=== PATIENT | male | born 1960 | race Caucasian/White ===

== ENCOUNTER 2020-02-24 08:35 | Inpatient (IN) | payer BC, OTHER ==
[~2020-02-24] VITALS: Ht 190.5 cm; Wt 151.0 kg
[2020-02-24 09:00] LABS: Basophils # (auto) 0 10 ^3/uL (0-0.2); Basophils % (auto) 0.1 % (0.0-2.0); Eosinophils # (auto) 0 10 ^3/uL (0-0.8); Hematocrit 43.9 % (41.0-53.0); Hemoglobin 14.9 g/dL (13.5-17.5); Lymphocytes # (auto) 0.7 10 ^3/uL (0.4-5.4); Lymphocytes % (auto) 8.8 % (10.0-50.0); Mean Corpuscular Hemoglobin 30.1 pg (28.0-32.0); Mean Corpuscular Volume 88.5 fL (80.0-100.0); Monocytes # (auto) 0.5 10 ^3/uL (0-1.3); Monocytes % (auto) 5.9 % (0.0-12.0); Neutrophils # (auto) 6.9 10 ^3/uL (1.6-8.6); Neutrophils % (auto) 85.2 % (37.0-80.0); Nucleated Red Blood Cells % 0.2 %; Platelet Count (auto) 165 10^3/uL (140-450); Red Blood Cells 4.97 10^6/uL (4.5-5.90); Red Cell Distribution Width 13.2 % (11.8-14.3); White Blood Cell 8.1 10^3/uL (4.4-10.8)
[2020-02-24 09:22] LABS: Alanine Aminotransferase 49 U/L (16-61); Albumin 2.9 g/dL (3.4-5.0); Anion Gap 12 (5-15); Aspartate Aminotransferase 74 U/L (15-37); BUN/Creatinine Ratio 14.5; Blood Urea Nitrogen 16 mg/dL (7-18); Calcium 8.2 mg/dL (8.5-10.1); Carbon Dioxide 23 mmol/L (21-32); Chloride 101 mmol/L (98-107); GFR African American 88 mL/min; GFR Non-African American 73 mL/min; Glucose 175 mg/dL (74-106); Magnesium 2.2 mg/dL (1.6-2.6); Potassium 3.6 mmol/L (3.5-5.1); Sodium 136 mmol/L (136-145)
[2020-02-24 09:27] LABS: Alkaline Phosphatase 62 U/L (45-117); Bilirubin, Total 1.2 mg/dL (0.2-1.0)
[2020-02-24] MEDS ORDERED: levoFLOXacin 750MG 150 ML IV ONE (11:15)
[2020-02-24] MEDS ORDERED: ONDANSETRON HCL 4 MG/2 ML VIAL IV PRN (12:00)
[2020-02-24] MEDS ORDERED: REMDESIVIR PER PHARMACY 0 ML IV SCH (12:00)
[2020-02-24] MEDS ORDERED: MORPHINE SULF INJ 2 MG/ML SYRINGE 1ML IV PRN (12:00)
[2020-02-24] MEDS ORDERED: guaiFENesin-DM 100/10mg/5ml SYR PO PRN (12:00)
[2020-02-24] MEDS ORDERED: NITROGLYCERIN 0.4 MG SL TAB SL PRN (12:00)
[2020-02-24] MEDS ORDERED: AZITHROMYCIN 500MG/ 250ML 250 ML IV ONE (12:15)
[2020-02-24] MEDS ORDERED: ENOXAPARIN SOD 40 MG/0.4 ML SYRINGE SC ONE (12:15)
[2020-02-24] MEDS ORDERED: ASCORBIC ACID 1,000 MG TAB PO ONE (12:15)
[2020-02-24] MEDS ORDERED: FAMOTIDINE 20 MG TAB PO ONE (12:15)
[2020-02-24] MEDS ORDERED: CHOLECALCIFEROL (VITD3) 2,000 UNIT CAP PO ONE (12:15)
[2020-02-24] MEDS ORDERED: ZINC SULFATE 220mg CAP or TAB PO ONE (12:15)
[2020-02-24] MEDS ORDERED: DexAMETHasone SOD PHOS 10MG/1ML VIAL INJ IV ONE (12:15)
[2020-02-24] MEDS ORDERED: LISI-646 PO (13:06)
[2020-02-24] MEDS ORDERED: AMLO10TA13 PO (13:06)
[2020-02-24 15:09] LABS: Urine Bacteria FEW /hpf (None Seen); Urine Blood Negative /uL (Negative); Urine Mucus FEW (None Seen); Urine WBC 3 /hpf (0 - 3)
[2020-02-24] MEDS ORDERED: REMDESIVIR 200 MG in NS 210ml LOADING DOSE ADULT IV ONE (20:00)
[2020-02-24] MEDS: BUDESONIDE (INHALATION) 180 MCG IH IN SCH (22:00)
[2020-02-24] MEDS: ENOXAPARIN SOD 40 MG/0.4 ML SYRINGE SC SCH (23:28)
[2020-02-25 05:32] LABS: Basophils # (auto) 0 10 ^3/uL (0-0.2); Basophils % (auto) 0.1 % (0.0-2.0); Eosinophils # (auto) 0 10 ^3/uL (0-0.8); Hematocrit 43.6 % (41.0-53.0); Lymphocytes # (auto) 0.8 10 ^3/uL (0.4-5.4); Lymphocytes % (auto) 10.9 % (10.0-50.0); Mean Corpuscular Hemoglobin 30.6 pg (28.0-32.0); Mean Corpuscular Hgb Conc. 34.3 g/dL (32.0-36.0); Mean Corpuscular Volume 89.4 fL (80.0-100.0); Monocytes # (auto) 0.4 10 ^3/uL (0-1.3); Monocytes % (auto) 6.1 % (0.0-12.0); Neutrophils # (auto) 5.7 10 ^3/uL (1.6-8.6); Neutrophils % (auto) 82.9 % (37.0-80.0); Nucleated Red Blood Cells % 0.1 %; Platelet Count (auto) 181 10^3/uL (140-450); Red Blood Cells 4.88 10^6/uL (4.5-5.90); Red Cell Distribution Width 13.3 % (11.8-14.3); White Blood Cell 6.9 10^3/uL (4.4-10.8)
[2020-02-25 05:52] LABS: Potassium 4.1 mmol/L (3.5-5.1)
[2020-02-25 06:01] LABS: Albumin 2.6 g/dL (3.4-5.0); BUN/Creatinine Ratio 20.6; Bilirubin, Total 0.9 mg/dL (0.2-1.0); Calcium 8.5 mg/dL (8.5-10.1)
[2020-02-25] MEDS: AZITHROMYCIN 500MG/ 250ML 250 ML IV SCH (08:23)
[2020-02-25] MEDS: ASCORBIC ACID 1,000 MG TAB PO SCH (08:23)
[2020-02-25] MEDS: ZINC SULFATE 220mg CAP or TAB PO SCH (08:23)
[2020-02-25] MEDS: ENOXAPARIN SOD 40 MG/0.4 ML SYRINGE SC SCH ×2 (08:23→22:43)
[2020-02-25] MEDS: FAMOTIDINE 20 MG TAB PO SCH (08:23)
[2020-02-25] MEDS: CHOLECALCIFEROL (VITD3) 2,000 UNIT CAP PO SCH (08:23)
[2020-02-25] MEDS: cefTRIAXone 1GM/50ML D5W 50 ML IV SCH (09:09)
[2020-02-25] MEDS: BUDESONIDE (INHALATION) 180 MCG IH IN SCH ×2 (10:00→22:00)
[2020-02-25] MEDS ORDERED: DexAMETHasone SOD PHOS 10MG/1ML VIAL INJ IV SCH (10:00)
[2020-02-25 12:20] VITALS: BP 135/78
[2020-02-25 12:35] VITALS: BP 129/58
[2020-02-25 13:44] VITALS: BP 138/96
[2020-02-25] MEDS: REMDESIVIR 100 MG in SODIUM CHL 0.9% 250 ML IV SCH (15:15)
[2020-02-25] MEDS ORDERED: FUROSEMIDE 20 MG/2 ML VIAL IV ONE (16:00)
[2020-02-25] MEDS ORDERED: DEXTROSE (50%) 50ML SYRG IV PRN (16:00)
[2020-02-25] MEDS ORDERED: diphenhdrAMINE HCL 50 MG/1 ML VL IV SCH (17:30)
[2020-02-25] MEDS ORDERED: methylPREDNISolone SOD SUCC 40 MG/ML VL IV ONE ×2 (17:30→19:30)
[2020-02-25] MEDS ORDERED: ACETAMINOPHEN 650 mg PER 20.3 mL UD PO SCH (17:30)
[2020-02-25] MEDS ORDERED: TOCILIZUMAB 400 MG in SODIUM CHL 0.9% 80 ML IV SCH (18:00)
[2020-02-25] MEDS: ACCU-CHEK COMFORT CURVE STRIP VI SCH ×2 (18:29→23:51)
[2020-02-25] MEDS: InsuLIN REG 1unit/0.01ml Soln (100units/ml) SC SCH (18:34)
[2020-02-25] MEDS: diphenhdrAMINE HCL 50 MG/1 ML VL IV SCH (20:03)
[2020-02-25] MEDS: ACETAMINOPHEN 650 mg PER 20.3 mL UD PO SCH (20:04)
[2020-02-25] MEDS: TOCILIZUMAB 400 MG in SODIUM CHL 0.9% 80 ML IV SCH (21:03)
[2020-02-26] VITALS: BP 146/95
[2020-02-26] MEDS: InsuLIN REG 1unit/0.01ml Soln (100units/ml) SC SCH ×5 (00:02→23:42)
[2020-02-26 02:25] VITALS: BP 146/95
[2020-02-26] MEDS: ACCU-CHEK COMFORT CURVE STRIP VI SCH ×4 (06:00→23:37)
[2020-02-26 07:00] LABS: Albumin 2.5 g/dL (3.4-5.0); BUN/Creatinine Ratio 25.3; Bilirubin, Total 0.7 mg/dL (0.2-1.0); Calcium 8.2 mg/dL (8.5-10.1); Total Protein 6.6 g/dL (6.4-8.2)
[2020-02-26] MEDS: diphenhdrAMINE HCL 50 MG/1 ML VL IV SCH (07:26)
[2020-02-26] MEDS: DexAMETHasone SOD PHOS 10MG/1ML VIAL INJ IV SCH (07:26)
[2020-02-26] MEDS: ACETAMINOPHEN 650 mg PER 20.3 mL UD PO SCH (07:27)
[2020-02-26 08:00] VITALS: BP 153/85
[2020-02-26] MEDS: cefTRIAXone 1GM/50ML D5W 50 ML IV SCH (09:28)
[2020-02-26] MEDS: CHOLECALCIFEROL (VITD3) 2,000 UNIT CAP PO SCH (09:30)
[2020-02-26] MEDS: FAMOTIDINE 20 MG TAB PO SCH (09:30)
[2020-02-26] MEDS: ASCORBIC ACID 1,000 MG TAB PO SCH (09:30)
[2020-02-26] MEDS: ZINC SULFATE 220mg CAP or TAB PO SCH (09:30)
[2020-02-26] MEDS: ENOXAPARIN SOD 40 MG/0.4 ML SYRINGE SC SCH ×2 (09:30→22:12)
[2020-02-26] MEDS: FUROSEMIDE 20 MG/2 ML VIAL IV SCH (10:00)
[2020-02-26] MEDS: BUDESONIDE (INHALATION) 180 MCG IH IN SCH ×2 (10:00→22:12)
[2020-02-26] MEDS: TOCILIZUMAB 400 MG in SODIUM CHL 0.9% 80 ML IV SCH (10:30)
[2020-02-26] MEDS: AZITHROMYCIN 500MG/ 250ML 250 ML IV SCH (12:30)
[2020-02-26 16:00] VITALS: BP 125/76
[2020-02-26] MEDS: REMDESIVIR 100 MG in SODIUM CHL 0.9% 250 ML IV SCH (17:00)
[2020-02-26 22:00] VITALS: BP 124/63
[2020-02-27] MEDS: ACCU-CHEK COMFORT CURVE STRIP VI SCH ×4 (05:51→23:37)
[2020-02-27] MEDS: InsuLIN REG 1unit/0.01ml Soln (100units/ml) SC SCH ×4 (05:52→23:55)
[2020-02-27 08:00] VITALS: BP 144/83
[2020-02-27 08:47] LABS: Albumin 2.4 g/dL (3.4-5.0); Calcium 8.4 mg/dL (8.5-10.1)
[2020-02-27] MEDS: cefTRIAXone 1GM/50ML D5W 50 ML IV SCH (08:52)
[2020-02-27] MEDS: BUDESONIDE (INHALATION) 180 MCG IH IN SCH ×2 (08:53→20:55)
[2020-02-27] MEDS: FUROSEMIDE 20 MG/2 ML VIAL IV SCH (08:53)
[2020-02-27] MEDS: ZINC SULFATE 220mg CAP or TAB PO SCH (08:53)
[2020-02-27] MEDS: FAMOTIDINE 20 MG TAB PO SCH (08:53)
[2020-02-27] MEDS: DexAMETHasone SOD PHOS 10MG/1ML VIAL INJ IV SCH (08:53)
[2020-02-27] MEDS: ENOXAPARIN SOD 40 MG/0.4 ML SYRINGE SC SCH ×2 (08:54→21:25)
[2020-02-27] MEDS: ASCORBIC ACID 1,000 MG TAB PO SCH (08:54)
[2020-02-27] MEDS: CHOLECALCIFEROL (VITD3) 2,000 UNIT CAP PO SCH (08:54)
[2020-02-27 09:12] LABS: BUN/Creatinine Ratio 24.5; Bilirubin, Total 0.6 mg/dL (0.2-1.0); Total Protein 6.1 g/dL (6.4-8.2)
[2020-02-27] MEDS: AZITHROMYCIN 500MG/ 250ML 250 ML IV SCH (10:25)
[2020-02-27] MEDS: REMDESIVIR 100 MG in SODIUM CHL 0.9% 250 ML IV SCH (15:06)
[2020-02-27 16:03] VITALS: BP 142/80
[2020-02-28 00:22] VITALS: BP 138/87
[2020-02-28] MEDS: ACCU-CHEK COMFORT CURVE STRIP VI SCH ×4 (06:08→23:52)
[2020-02-28] MEDS: InsuLIN REG 1unit/0.01ml Soln (100units/ml) SC SCH ×4 (06:09→23:53)
[2020-02-28 07:54] LABS: Potassium 4.2 mmol/L (3.5-5.1)
[2020-02-28 08:00] VITALS: BP 135/91
[2020-02-28 08:04] LABS: Albumin 2.6 g/dL (3.4-5.0); BUN/Creatinine Ratio 26.3; Calcium 8.1 mg/dL (8.5-10.1)
[2020-02-28 08:06] LABS: Bilirubin, Total 0.8 mg/dL (0.2-1.0); Total Protein 6.2 g/dL (6.4-8.2)
[2020-02-28] MEDS: ALBUTEROL SULF HFA 90MCG INH 200DOSE IN PRN ×2 (09:35→19:23)
[2020-02-28] MEDS: BUDESONIDE (INHALATION) 180 MCG IH IN SCH ×2 (09:35→19:23)
[2020-02-28] MEDS: cefTRIAXone 1GM/50ML D5W 50 ML IV SCH (09:43)
[2020-02-28] MEDS: ZINC SULFATE 220mg CAP or TAB PO SCH (09:43)
[2020-02-28] MEDS: DexAMETHasone SOD PHOS 10MG/1ML VIAL INJ IV SCH (09:43)
[2020-02-28] MEDS: FAMOTIDINE 20 MG TAB PO SCH (09:44)
[2020-02-28] MEDS: ASCORBIC ACID 1,000 MG TAB PO SCH (09:44)
[2020-02-28] MEDS: CHOLECALCIFEROL (VITD3) 2,000 UNIT CAP PO SCH (09:44)
[2020-02-28] MEDS: ENOXAPARIN SOD 40 MG/0.4 ML SYRINGE SC SCH ×2 (09:45→21:18)
[2020-02-28] MEDS: FUROSEMIDE 20 MG/2 ML VIAL IV SCH (09:46)
[2020-02-28] MEDS: AZITHROMYCIN 500MG/ 250ML 250 ML IV SCH (10:11)
[2020-02-28] MEDS: REMDESIVIR 100 MG in SODIUM CHL 0.9% 250 ML IV SCH (15:38)
[2020-02-28 16:00] VITALS: BP 127/67
[2020-02-28] MEDS ORDERED: guaiFENesin-CODEINE Liq 5 ML UD PO PRN (16:30)
[2020-02-29] VITALS: BP 136/87
[2020-02-29] MEDS: ACCU-CHEK COMFORT CURVE STRIP VI SCH ×4 (05:58→23:31)
[2020-02-29] MEDS: InsuLIN REG 1unit/0.01ml Soln (100units/ml) SC SCH ×4 (06:12→23:31)
[2020-02-29 08:00] VITALS: BP 123/85
[2020-02-29] MEDS: cefTRIAXone 1GM/50ML D5W 50 ML IV SCH (10:06)
[2020-02-29] MEDS: FAMOTIDINE 20 MG TAB PO SCH (10:07)
[2020-02-29] MEDS: DexAMETHasone SOD PHOS 10MG/1ML VIAL INJ IV SCH (10:07)
[2020-02-29] MEDS: ASCORBIC ACID 1,000 MG TAB PO SCH (10:07)
[2020-02-29] MEDS: ZINC SULFATE 220mg CAP or TAB PO SCH (10:07)
[2020-02-29] MEDS: ENOXAPARIN SOD 40 MG/0.4 ML SYRINGE SC SCH (10:08)
[2020-02-29] MEDS: CHOLECALCIFEROL (VITD3) 2,000 UNIT CAP PO SCH (10:08)
[2020-02-29] MEDS: FUROSEMIDE 20 MG/2 ML VIAL IV SCH (10:14)
[2020-02-29] MEDS: AZITHROMYCIN 500MG/ 250ML 250 ML IV SCH (10:30)
[2020-02-29] MEDS: ALBUTEROL SULF HFA 90MCG INH 200DOSE IN PRN (10:30)
[2020-02-29] MEDS: BUDESONIDE (INHALATION) 180 MCG IH IN SCH ×2 (10:30→18:45)
[2020-02-29 16:00] VITALS: BP 138/78
[2020-02-29] MEDS: ENOXAPARIN SOD 100 MG/1 ML SYRINGE SC SCH (21:14)
[2020-03-01] VITALS: BP 136/87
[2020-03-01] MEDS: ACCU-CHEK COMFORT CURVE STRIP VI SCH ×4 (05:34→23:23)
[2020-03-01] MEDS: InsuLIN REG 1unit/0.01ml Soln (100units/ml) SC SCH ×4 (05:36→23:24)
[2020-03-01 08:00] VITALS: BP 138/92
[2020-03-01] MEDS: ALBUTEROL SULF HFA 90MCG INH 200DOSE IN PRN ×2 (08:15→19:42)
[2020-03-01] MEDS: BUDESONIDE (INHALATION) 180 MCG IH IN SCH ×2 (08:15→19:42)
[2020-03-01] MEDS: cefTRIAXone 1GM/50ML D5W 50 ML IV SCH (09:00)
[2020-03-01] MEDS: DexAMETHasone SOD PHOS 10MG/1ML VIAL INJ IV SCH ×2 (09:29→21:27)
[2020-03-01] MEDS: ZINC SULFATE 220mg CAP or TAB PO SCH (09:30)
[2020-03-01] MEDS: ASCORBIC ACID 1,000 MG TAB PO SCH (09:30)
[2020-03-01] MEDS: FUROSEMIDE 20 MG/2 ML VIAL IV SCH (09:30)
[2020-03-01] MEDS: ENOXAPARIN SOD 100 MG/1 ML SYRINGE SC SCH ×2 (09:31→21:27)
[2020-03-01] MEDS: FAMOTIDINE 20 MG TAB PO SCH (09:31)
[2020-03-01] MEDS: CHOLECALCIFEROL (VITD3) 2,000 UNIT CAP PO SCH (09:31)
[2020-03-01] MEDS: AZITHROMYCIN 500MG/ 250ML 250 ML IV SCH (10:00)
[2020-03-01 16:00] VITALS: BP 141/65
[2020-03-01] MEDS: ACETAMINOPHEN 500 MG TAB PO PRN ×2 (19:49→19:50)
[2020-03-02] VITALS: BP 122/71
[2020-03-02] MEDS: ACCU-CHEK COMFORT CURVE STRIP VI SCH ×4 (05:36→23:12)
[2020-03-02] MEDS: InsuLIN REG 1unit/0.01ml Soln (100units/ml) SC SCH ×4 (05:39→23:19)
[2020-03-02 07:16] LABS: Basophils # (auto) 0 10 ^3/uL (0-0.2); Basophils % (auto) 0.1 % (0.0-2.0); Eosinophils # (auto) 0 10 ^3/uL (0-0.8); Eosinophils % (auto) 0.2 % (0.0-7.0); Hematocrit 46.1 % (41.0-53.0); Hemoglobin 15.7 g/dL (13.5-17.5); Lymphocytes # (auto) 0.9 10 ^3/uL (0.4-5.4); Lymphocytes % (auto) 6.6 % (10.0-50.0); Mean Corpuscular Hemoglobin 30.3 pg (28.0-32.0); Mean Corpuscular Hgb Conc. 34.1 g/dL (32.0-36.0); Mean Corpuscular Volume 88.9 fL (80.0-100.0); Monocytes # (auto) 0.5 10 ^3/uL (0-1.3); Monocytes % (auto) 3.3 % (0.0-12.0); Neutrophils # (auto) 12.8 10 ^3/uL (1.6-8.6); Neutrophils % (auto) 89.8 % (37.0-80.0); Nucleated Red Blood Cells % 0.3 %; Platelet Count (auto) 291 10^3/uL (140-450); Red Blood Cells 5.18 10^6/uL (4.5-5.90); Red Cell Distribution Width 13.2 % (11.8-14.3); White Blood Cell 14.3 10^3/uL (4.4-10.8)
[2020-03-02] MEDS: BUDESONIDE (INHALATION) 180 MCG IH IN SCH ×2 (07:16→21:00)
[2020-03-02] MEDS: ALBUTEROL SULF HFA 90MCG INH 200DOSE IN PRN ×2 (07:16→21:00)
[2020-03-02 08:00] VITALS: BP 123/77
[2020-03-02 08:37] LABS: Albumin 2.7 g/dL (3.4-5.0); BUN/Creatinine Ratio 27.4; Bilirubin, Total 0.9 mg/dL (0.2-1.0); Calcium 8.5 mg/dL (8.5-10.1); Potassium 4.5 mmol/L (3.5-5.1); Total Protein 6.5 g/dL (6.4-8.2)
[2020-03-02] MEDS: FUROSEMIDE 20 MG/2 ML VIAL IV SCH (09:06)
[2020-03-02] MEDS: DexAMETHasone SOD PHOS 10MG/1ML VIAL INJ IV SCH ×2 (09:06→21:00)
[2020-03-02] MEDS: cefTRIAXone 1GM/50ML D5W 50 ML IV SCH (09:11)
[2020-03-02] MEDS: ZINC SULFATE 220mg CAP or TAB PO SCH (09:18)
[2020-03-02] MEDS: ASCORBIC ACID 1,000 MG TAB PO SCH (09:18)
[2020-03-02] MEDS: FAMOTIDINE 20 MG TAB PO SCH (09:18)
[2020-03-02] MEDS: CHOLECALCIFEROL (VITD3) 2,000 UNIT CAP PO SCH (09:18)
[2020-03-02] MEDS: AZITHROMYCIN 250 MG TAB PO SCH (09:19)
[2020-03-02] MEDS: ENOXAPARIN SOD 100 MG/1 ML SYRINGE SC SCH ×2 (09:20→21:00)
[2020-03-02 16:00] VITALS: BP 110/63
[2020-03-02] MEDS: guaiFENesin-CODEINE Liq 5 ML UD PO SCH ×3 (16:00→20:59)
[2020-03-03] VITALS: BP 137/79
[2020-03-03] MEDS: guaiFENesin-CODEINE Liq 5 ML UD PO SCH ×6 (01:17→21:02)
[2020-03-03] MEDS: ACCU-CHEK COMFORT CURVE STRIP VI SCH ×4 (05:29→23:16)
[2020-03-03] MEDS: InsuLIN REG 1unit/0.01ml Soln (100units/ml) SC SCH ×4 (05:41→23:20)
[2020-03-03 08:00] VITALS: BP 137/88
[2020-03-03] MEDS: BUDESONIDE (INHALATION) 180 MCG IH IN SCH ×2 (10:00→19:30)
[2020-03-03] MEDS: cefTRIAXone 1GM/50ML D5W 50 ML IV SCH (10:00)
[2020-03-03] MEDS: DexAMETHasone SOD PHOS 10MG/1ML VIAL INJ IV SCH ×2 (10:01→21:01)
[2020-03-03] MEDS: FUROSEMIDE 20 MG/2 ML VIAL IV SCH (10:01)
[2020-03-03] MEDS: ASCORBIC ACID 1,000 MG TAB PO SCH (10:06)
[2020-03-03] MEDS: ENOXAPARIN SOD 100 MG/1 ML SYRINGE SC SCH ×2 (10:07→21:02)
[2020-03-03] MEDS: AZITHROMYCIN 250 MG TAB PO SCH (10:07)
[2020-03-03] MEDS: FAMOTIDINE 20 MG TAB PO SCH (10:07)
[2020-03-03] MEDS: CHOLECALCIFEROL (VITD3) 2,000 UNIT CAP PO SCH (10:07)
[2020-03-03] MEDS: ZINC SULFATE 220mg CAP or TAB PO SCH (10:14)
[2020-03-03 16:00] VITALS: BP 131/83
[2020-03-03] MEDS: ALBUTEROL SULF HFA 90MCG INH 200DOSE IN PRN ×2 (16:56→19:30)
[2020-03-04] VITALS: BP 107/57
[2020-03-04] MEDS: guaiFENesin-CODEINE Liq 5 ML UD PO SCH ×7 (01:51→21:35)
[2020-03-04] MEDS: ACCU-CHEK COMFORT CURVE STRIP VI SCH ×4 (05:43→23:30)
[2020-03-04] MEDS: InsuLIN REG 1unit/0.01ml Soln (100units/ml) SC SCH ×4 (05:43→23:30)
[2020-03-04 08:00] VITALS: BP 106/74
[2020-03-04] MEDS: cefTRIAXone 1GM/50ML D5W 50 ML IV SCH (10:12)
[2020-03-04] MEDS: DexAMETHasone SOD PHOS 10MG/1ML VIAL INJ IV SCH ×2 (10:12→21:35)
[2020-03-04] MEDS: BUDESONIDE (INHALATION) 180 MCG IH IN SCH ×3 (10:12→20:13)
[2020-03-04] MEDS: CHOLECALCIFEROL (VITD3) 2,000 UNIT CAP PO SCH (10:13)
[2020-03-04] MEDS: AZITHROMYCIN 250 MG TAB PO SCH (10:13)
[2020-03-04] MEDS: ZINC SULFATE 220mg CAP or TAB PO SCH (10:13)
[2020-03-04] MEDS: ASCORBIC ACID 1,000 MG TAB PO SCH (10:13)
[2020-03-04] MEDS: FAMOTIDINE 20 MG TAB PO SCH (10:13)
[2020-03-04] MEDS: ENOXAPARIN SOD 100 MG/1 ML SYRINGE SC SCH ×2 (10:14→21:35)
[2020-03-04] MEDS: FUROSEMIDE 20 MG/2 ML VIAL IV SCH (10:15)
[2020-03-04 16:00] VITALS: BP 121/74
[2020-03-04] MEDS: ALBUTEROL SULF HFA 90MCG INH 200DOSE IN PRN (20:13)
[2020-03-05] VITALS: BP 140/83
[2020-03-05] MEDS: guaiFENesin-CODEINE Liq 5 ML UD PO SCH ×6 (01:07→21:18)
[2020-03-05] MEDS: ALBUTEROL SULF HFA 90MCG INH 200DOSE IN PRN ×3 (01:28→21:41)
[2020-03-05] MEDS: ACCU-CHEK COMFORT CURVE STRIP VI SCH ×4 (05:35→23:50)
[2020-03-05] MEDS: InsuLIN REG 1unit/0.01ml Soln (100units/ml) SC SCH ×4 (05:36→23:56)
[2020-03-05] MEDS: ACETAMINOPHEN 500 MG TAB PO PRN ×3 (06:30→21:19)
[2020-03-05] MEDS: BUDESONIDE (INHALATION) 180 MCG IH IN SCH ×2 (06:51→21:41)
[2020-03-05 08:00] VITALS: BP 149/77
[2020-03-05 08:43] LABS: Potassium 4.2 mmol/L (3.5-5.1)
[2020-03-05 08:49] LABS: Calcium 8.6 mg/dL (8.5-10.1)
[2020-03-05] MEDS: cefTRIAXone 1GM/50ML D5W 50 ML IV SCH (08:53)
[2020-03-05] MEDS: ZINC SULFATE 220mg CAP or TAB PO SCH (09:16)
[2020-03-05] MEDS: DexAMETHasone SOD PHOS 10MG/1ML VIAL INJ IV SCH (09:16)
[2020-03-05] MEDS: FAMOTIDINE 20 MG TAB PO SCH (09:16)
[2020-03-05] MEDS: ASCORBIC ACID 1,000 MG TAB PO SCH (09:17)
[2020-03-05] MEDS: CHOLECALCIFEROL (VITD3) 2,000 UNIT CAP PO SCH (09:17)
[2020-03-05] MEDS: AZITHROMYCIN 250 MG TAB PO SCH (09:18)
[2020-03-05] MEDS: ENOXAPARIN SOD 100 MG/1 ML SYRINGE SC SCH ×2 (09:20→21:19)
[2020-03-05] MEDS: FUROSEMIDE 20 MG/2 ML VIAL IV SCH (10:31)
[2020-03-05 16:00] VITALS: BP 123/81
[2020-03-05] MEDS: HYDROcodone-ACET 5/325MG TAB PO PRN ×2 (17:23→23:50)
[2020-03-05 22:32] VITALS: BP 123/79
[2020-03-06] VITALS: BP 123/79
[2020-03-06] MEDS: guaiFENesin-CODEINE Liq 5 ML UD PO SCH ×6 (02:00→21:15)
[2020-03-06] MEDS: MORPHINE SULF INJ 2 MG/ML SYRINGE 1ML IV PRN (02:56)
[2020-03-06] MEDS: ACCU-CHEK COMFORT CURVE STRIP VI SCH ×4 (05:34→23:49)
[2020-03-06] MEDS: ACETAMINOPHEN 500 MG TAB PO PRN (05:35)
[2020-03-06] MEDS: InsuLIN REG 1unit/0.01ml Soln (100units/ml) SC SCH ×4 (05:45→23:50)
[2020-03-06] MEDS: ALBUTEROL SULF HFA 90MCG INH 200DOSE IN PRN ×2 (07:25→20:48)
[2020-03-06] MEDS: BUDESONIDE (INHALATION) 180 MCG IH IN SCH ×2 (07:25→20:48)
[2020-03-06 08:00] VITALS: BP 113/72
[2020-03-06] MEDS: DexAMETHasone SOD PHOS 10MG/1ML VIAL INJ IV SCH (09:58)
[2020-03-06] MEDS: FAMOTIDINE 20 MG TAB PO SCH (09:59)
[2020-03-06] MEDS: FUROSEMIDE 20 MG/2 ML VIAL IV SCH (09:59)
[2020-03-06] MEDS: ZINC SULFATE 220mg CAP or TAB PO SCH (09:59)
[2020-03-06] MEDS: ENOXAPARIN SOD 100 MG/1 ML SYRINGE SC SCH ×2 (10:00→21:15)
[2020-03-06] MEDS: AZITHROMYCIN 250 MG TAB PO SCH (10:00)
[2020-03-06] MEDS: ASCORBIC ACID 1,000 MG TAB PO SCH (10:00)
[2020-03-06] MEDS: CHOLECALCIFEROL (VITD3) 2,000 UNIT CAP PO SCH (10:00)
[2020-03-06 15:42] VITALS: BP 129/82
[2020-03-06] MEDS ORDERED: CYCLOBENZAPRINE HCL 10 MG TAB PO ONE (23:15)
[2020-03-07] VITALS: BP 142/89
[2020-03-07] MEDS: guaiFENesin-CODEINE Liq 5 ML UD PO SCH ×6 (02:00→21:37)
[2020-03-07] MEDS: ACCU-CHEK COMFORT CURVE STRIP VI SCH ×4 (05:27→23:40)
[2020-03-07] MEDS: InsuLIN REG 1unit/0.01ml Soln (100units/ml) SC SCH ×4 (05:28→23:41)
[2020-03-07] MEDS: BUDESONIDE (INHALATION) 180 MCG IH IN SCH ×2 (06:28→22:00)
[2020-03-07] MEDS: ALBUTEROL SULF HFA 90MCG INH 200DOSE IN PRN ×2 (06:28→19:25)
[2020-03-07 08:00] VITALS: BP 111/76
[2020-03-07] MEDS: DexAMETHasone SOD PHOS 10MG/1ML VIAL INJ IV SCH (09:31)
[2020-03-07] MEDS: CHOLECALCIFEROL (VITD3) 2,000 UNIT CAP PO SCH (09:32)
[2020-03-07] MEDS: FUROSEMIDE 20 MG/2 ML VIAL IV SCH (09:32)
[2020-03-07] MEDS: AZITHROMYCIN 250 MG TAB PO SCH (09:32)
[2020-03-07] MEDS: ZINC SULFATE 220mg CAP or TAB PO SCH (09:32)
[2020-03-07] MEDS: ASCORBIC ACID 1,000 MG TAB PO SCH (09:32)
[2020-03-07] MEDS: FAMOTIDINE 20 MG TAB PO SCH (09:32)
[2020-03-07] MEDS: ENOXAPARIN SOD 100 MG/1 ML SYRINGE SC SCH ×2 (09:32→21:36)
[2020-03-07] MEDS ORDERED: FUROSEMIDE 20 MG/2 ML VIAL IV ONE (13:30)
[2020-03-07] MEDS ORDERED: POTASSIUM CHL 20 Meq TABLET PO ONE (13:30)
[2020-03-07 16:00] VITALS: BP 132/81
[2020-03-08] VITALS: BP 131/81
[2020-03-08] MEDS: guaiFENesin-CODEINE Liq 5 ML UD PO SCH ×5 (02:00→17:10)
[2020-03-08] MEDS: ACCU-CHEK COMFORT CURVE STRIP VI SCH ×3 (06:06→17:10)
[2020-03-08] MEDS: InsuLIN REG 1unit/0.01ml Soln (100units/ml) SC SCH ×3 (06:16→17:10)
[2020-03-08 07:39] LABS: Basophils # (auto) 0 10 ^3/uL (0-0.2); Basophils % (auto) 0.2 % (0.0-2.0); Eosinophils # (auto) 0 10 ^3/uL (0-0.8); Eosinophils % (auto) 0.1 % (0.0-7.0); Hematocrit 37.7 % (41.0-53.0); Hemoglobin 12.6 g/dL (13.5-17.5); Lymphocytes # (auto) 2.5 10 ^3/uL (0.4-5.4); Lymphocytes % (auto) 11.6 % (10.0-50.0); Mean Corpuscular Hemoglobin 30.4 pg (28.0-32.0); Mean Corpuscular Hgb Conc. 33.4 g/dL (32.0-36.0); Monocytes # (auto) 1.3 10 ^3/uL (0-1.3); Monocytes % (auto) 6.2 % (0.0-12.0); Neutrophils # (auto) 17.4 10 ^3/uL (1.6-8.6); Neutrophils % (auto) 81.9 % (37.0-80.0); Nucleated Red Blood Cells % 0.1 %; Platelet Count (auto) 227 10^3/uL (140-450); Red Blood Cells 4.15 10^6/uL (4.5-5.90); Red Cell Distribution Width 13.3 % (11.8-14.3); White Blood Cell 21.2 10^3/uL (4.4-10.8)
[2020-03-08 07:50] LABS: Albumin 2.9 g/dL (3.4-5.0); Calcium 8.4 mg/dL (8.5-10.1)
[2020-03-08 07:57] LABS: BUN/Creatinine Ratio 29.2; Total Protein 6.1 g/dL (6.4-8.2)
[2020-03-08 08:00] VITALS: BP 128/85
[2020-03-08] MEDS: ENOXAPARIN SOD 100 MG/1 ML SYRINGE SC SCH (09:27)
[2020-03-08] MEDS: FAMOTIDINE 20 MG TAB PO SCH (09:28)
[2020-03-08] MEDS: ZINC SULFATE 220mg CAP or TAB PO SCH (09:28)
[2020-03-08] MEDS: FUROSEMIDE 20 MG/2 ML VIAL IV SCH (09:28)
[2020-03-08] MEDS: DexAMETHasone SOD PHOS 10MG/1ML VIAL INJ IV SCH (09:28)
[2020-03-08] MEDS: AZITHROMYCIN 250 MG TAB PO SCH (09:29)
[2020-03-08] MEDS: ASCORBIC ACID 1,000 MG TAB PO SCH (09:29)
[2020-03-08] MEDS: CHOLECALCIFEROL (VITD3) 2,000 UNIT CAP PO SCH (09:29)
[2020-03-08] MEDS ORDERED: DOXYCYCLINE 100 MG TAB/CAP PO ONE (12:45)
[2020-03-08 16:00] VITALS: BP 104/77
[2020-03-08] MEDS: HYDROcodone-ACET 5/325MG TAB PO PRN (17:11)
[2020-03-08] MEDS: BUDESONIDE (INHALATION) 180 MCG IH IN SCH (19:55)
[2020-03-08] MEDS: ALBUTEROL SULF HFA 90MCG INH 200DOSE IN PRN (19:55)
[2020-03-08] MEDS: MORPHINE SULF INJ 2 MG/ML SYRINGE 1ML IV PRN (20:01)
[2020-03-08] MEDS ORDERED: DOXYCYCLINE 100 MG TAB/CAP PO SCH (22:00)
[2020-03-08] MEDS ORDERED: NOREPINEPHRINE 8 MG/250ML KIT 250 ML IV ONE (22:12)
[2020-03-08] MEDS ORDERED: NOREPINEPHRINE 8 MG/250ML KIT 250 ML IV SCH (22:45)
[2020-03-09] MEDS ORDERED: DexAMETHasone 4 MG TAB PO SCH (10:00)
[2020-03-09] MEDS ORDERED: FUROSEMIDE 20 MG TAB PO SCH (10:00)
[2020-03-09] MEDS ORDERED: CALCIUM CHLOR(10%) 100MG/ML 10ML SYRINGE IV ONE (11:04)
[2020-03-09] MEDS ORDERED: SODIUM BICARBONATE 8.4% INJ 50ML SYRINGE IV ONE (11:04)
[2020-03-09] MEDS ORDERED: EPINEPHrine HCL 1 MG/10 ML SYRG IV ONE (11:04)
[2020-03-09] MEDS ORDERED: ATROPINE SULF 1 MG/10ml SYR IV ONE (11:04)
== END 2020-03-09 11:05 | DRG 177 ==
LOC: ER 08:35 → TELE 08:36 → TELE-WESTW 02-25 17:24
PROVIDERS: ADMIT Nurse Practitioner Acute Care; ATTEND Internal Medicine
PROC: XW033E5 Introduction of Remdesivir Anti-infective into Peripheral Vein, Percutaneous Approach, New Technology Group 5 (ICD-10-PCS; 2020-02-24)
PROC: XW033H5 Introduction of Tocilizumab into Peripheral Vein, Percutaneous Approach, New Technology Group 5 (ICD-10-PCS; 2020-02-25)
PROC: XW13325 Transfusion of Convalescent Plasma (Nonautologous) into Peripheral Vein, Percutaneous Approach, New Technology Group 5 (ICD-10-PCS; 2020-02-25)
PROC: 5A12012 Performance of Cardiac Output, Single, Manual (ICD-10-PCS; principal; 2020-03-09)
DX: U07.1 COVID-19 (principal); J96.01 Acute respiratory failure with hypoxia; J12.82 Pneumonia due to coronavirus disease 2019; R65.20 Severe sepsis without septic shock; D68.59 Other primary thrombophilia; I10 Essential (primary) hypertension; E88.09 Other disorders of plasma-protein metabolism, not elsewhere classified; I46.9 Cardiac arrest, cause unspecified; E66.01 Morbid (severe) obesity due to excess calories; E11.65 Type 2 diabetes mellitus with hyperglycemia; D89.839 Cytokine release syndrome, grade unspecified
CPT/HCPCS: 36415; 71045; 80048; 80053; 81001; 82306; 82728; 82962; 83036; 83615; 83735; 84443; 84484; 85025; 85379; 86141; 86850; 86900; 86901; 87040; 87426; 87804; 93005; 94640; 96365; 96367; G0378; J0696; J1100; J1815; J1956